=== PATIENT | female | born 1990 | race Caucasian/White ===

== ENCOUNTER 2023-08-09 08:07 | Inpatient (IN) ==
--- NOTE | 2023-07-30 13:10 | Anesthesiology Consultation ---
Date of Service July 30, 2023 Assessment & Plan (1) Encounter for pre-operative examination: Plan - check urine test STAT Am DOS. - Case discussed with Dr. Rosario who advised patient is acceptable to proceed at current status from his standpoint, advised nothing additional needed prior to surgery regarding hypothyroidism. - endocrinology office note 07/26/23: "...Acquired autoimmune hypothyroidism: TSH still suboptimal and has increased to 6.8 despite increasing the dose last time. I do not think generic levothyroxine is a being absorbed. I think she will be benefited with a brand preparation and increase the dose. Her weight appropri ate dose is 150 mcg. New prescription for brand titration was sent to the pharmacy. A follow-up TSH is planned in 6 to 8 weeks...Patient on metformin full dose at 1000 twice a day. She was advised to take metformin with meals to improve her dietary cravings. I also think she will be a candidate for GLP-1 agonist. Her C-peptide has improved from 7.2-4.86 but still significantly elevated. Wegovy was initiated at 0.25 mg weekly for 4 weeks and then increase to 0.5 mg. Side effect profile was discussed with the patient at length and she was also referred to the weight management program at [facility]. She was advised to start Wegovy only after she has recovered from hysterectomy..." - Per loan manager on 07/30/23: No known infectious disease contacts, current infectious disease symptoms in past 10 days or COVID positive test result in the past 30 days. Chart Review Chart Review: Acceptable Risk for Surgery and Patient NOT seen in Pre Admission Testing History Surgery Operation Date: 08/09/23 08:20 Proposed Procedures p Total Laparoscopic Hysterectomy, Bilateral Salpingectomy and Cystoscopy, Possible Laparotomy on any Indicated Procedure - Neil Paredes MD Height/Weight Height: 5 ft 7 in Weight: 91.626 kg Allergies Allergy/AdvReac Type Severity Reaction Status Date / Time nickel Allergy Intermediate HIVES Verified 07/30/23 12:30 latex Allergy skin Verified 07/30/23 12:52 irritation, soreness varenicline [From Chantix] AdvReac Severe increased Verified 07/30/23 12:30 symptoms of bipolar Medications Home Medications Medication Instructions Recorded Confirmed Last Taken omeprazole 40 mg capsule,delayed 40 mg PO QDL 06/08/19 07/30/23 07/23/19 06:30 release metformin 500 mg tablet,extended 1,000 mg (2 x 500 mg) PO BID #360 05/09/23 07/30/23 Unknown release 24hr (osmotic) tabs levothyroxine 150 mcg tablet 150 mcg PO QAM 07/30/23 07/30/23 Unknown (Euthyrox) semaglutide (weight loss) 0.25 0.25 mg (0.5 mL) subcut Q7D #2 mL 07/30/23 07/30/23 Unknown mg/0.5 mL subcutaneous pen injector (Wegovy) Past Medical History Medical History (Updated 07/30/23 @ 13:13 by Ericka Haddad PA-C) Gastritis I contacted patient who states that she has chronic gastritis and follows with PCP, denies change or worsening. Thyroid cyst Acquired autoimmune hypothyroidism PCOS (polycystic ovarian syndrome) Obesity Hx of suicide attempt ~. no current problems. denies any thoughts of harming self or others currently. Mitral valve prolapse mild. follows with PCP. did see cardio at [facility] ~ but did not continue follow ups. 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 Past Family History Family History Uncle Colorectal cancer Family/Other Crohn's disease Other Breast cancer No family history of adverse response to anesthesia Denies family history of Ulcerative colitis Past Surgical History Surgical History History of esophagogastroduodenoscopy (EGD) History of colonoscopy S/P tubal ligation H/O tooth extraction all teeth Social History Smoking Status: Current every day smoker tobacco type: cigarettes Smoking cigarettes per day: 20 Do You Dip or Chew Tobacco: No Hx Alcohol Use: Yes alcohol intake frequency: holidays/special occasions only Hx Substance Use: No substance use type: does not use Lab Results Anesthesia Preop Results Results Anesthesia Widget: TSH 6.468 uIu/ml (0.300-4.500) H 07/26/23 Free T4 0.88 ng/dl (0.61-1.60) 07/26/23 Testing Other Testing Pituitary MRI 11/22/22 1. No acute intracranial abnormality. 2. Unchanged appearance of a 15 mm pituitary lesion. This likely represents a complex cystic lesion such as a Rathke's cleft cyst. No enhancing component is identified.
[~2023-08-09 08:07] MED LIST: LACTATED RINGER'S 1,000 ML IV SCH; ceFAZolin 2000MG 2,000 MG/15 ML SYR IV SCH
[2023-08-09 08:41] LABS: Basophils # (auto) 0.05 K/uL (0.00-0.20); Basophils % (auto) 0.5 %; Eosinophils # (auto) 0.27 K/uL (0.00-0.50); Eosinophils % (auto) 2.5 %; Hematocrit (blood only) 33.9 % (37.0-47.0); Hemoglobin 10.2 g/dl (12.0-16.0); Immature Granulocytes # (auto) 0.06 K/uL (0.01-0.20); Immature Granulocytes % (auto) 0.6 %; Lymphocytes # (auto) 2.37 K/uL (1.20-3.40); Lymphocytes % (auto) 22.1 %; Mean Corpuscular Hemoglobin 21.2 pg (25.0-34.0); Mean Corpuscular Hgb Conc 30.1 g/dL (32.0-36.0); Mean Corpuscular Volume 70.5 fL (80.0-100.0); Monocytes # (auto) 0.89 K/uL (0.11-0.59); Monocytes % (auto) 8.3 %; Neutrophils # (auto) 7.08 K/uL (1.40-6.50); Platelet Count 425 K/uL (130-400); RDW Coefficient of Variation 16.7 % (11.5-14.5); RDW Standard Deviation 42.1 fL (36.4-46.3); Red Blood Count 4.81 M/uL (4.20-5.40); White Blood Count 10.72 K/ul (4.8-10.8)
--- OUTSIDE RECORDS SUMMARY | 2023-08-09 08:48 | External Medical Summary ---
Author Name Unknown Address Unknown Organization [id number]:LABORATORY [facility] - [address] [place] [address] Laboratory Report Ordering Provider Test Date Status BRITANY GUTIERREZ 08/06/2023 11:57:54 Final Observation Date Value Abnormality Reference (Units ) Status SYNC LEUKOCYTES IN BLOOD BY AUTOMATED COUNT 08/06/2023 11:57:54 9.97 4.00-10.80 (K/uL) Final Segs 08/06/2023 11:57:54 65.9 40.0-75.0 (%) Final Lymphs % 08/06/2023 11:57:54 24.2 18.0-42.0 (%) Final Monos 08/06/2023 11:57:54 6.7 1.0-11.0 (%) Final Eosinophils 08/06/2023 11:57:54 2.4 0.0-6.0 (%) Final Basos 08/06/2023 11:57:54 0.6 0.0-2.0 (%) Final Immature Granulocyte, Percent 08/06/2023 11:57:54 0.2 0.0-2.0 (%) Final Absolute Segs 08/06/2023 11:57:54 6.57 1.80-7.70 (K/uL) Final Lymphs, absolute 08/06/2023 11:57:54 2.41 1.00-4.80 (K/ul) Final Monos, Abs 08/06/2023 11:57:54 0.67 0.00-1.10 (K/uL) Final Eos, Abs 08/06/2023 11:57:54 0.24 0.00-0.70 (K/uL) Final Basos, Abs 08/06/2023 11:57:54 0.06 0.00-0.20 (K/uL) Final Immature Granulocytes, Number 08/06/2023 11:57:54 0.02 0.00-0.20 (K/uL) Final Performing Location LABORATORY [facility] [place] - [address] [facility] [address]
--- OUTSIDE RECORDS SUMMARY | 2023-08-09 08:48 | External Medical Summary | Summary of Care ---
Author Name Unknown Organization [facility] Address [address] [facility] [place] [address] Phone [phone] Care Team Providers Care Professor Of Forest Planning Name Role Phone Unavailable Primary Care Provider Unavailabl e Reason for Visit * Reason Comments Pre-Op Testing Encounter Details Date Type Department Care Team (Late st Contact Info) Description 08/05/2023 8:30 AM EST Office Visit Gynecology/Obstetric s [facility] [address] [place] [address] Neil Paredes MD [address] [place] [address] Menorrhagia with regular cycle* Allergies Active Allergy Reactions Criticality Noted Date Comments Varenicline Psych complications 02/14/2017 Environmental Hives Medium 08/07/2007 Exposure to the metal Nickel causes hives Nickel 05/13/2017 Hives documented as of this encounter (statuses as of 08/05/2023) Medications Medication Sig Dispensed Refills Start Date End Date Status Omeprazole 40 MG Oral Capsule Delayed Release (PriLOSEC) TAKE 1 CAPSULE BY MOUTH ONCE DAILY BEFORE A MEAL 0 12/09/2022 Active Levothyroxine Sodium 100 MCG Oral Tablet (Levoxyl) Take 1 Tablet by mouth in the morning. 0 11/30/2022 Active metFORMIN HCl 500 MG Oral Tablet (Glucophage) Take 3 Tablets by mouth daily with breakfast. 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 Depression 12/07/2013 documented as of this encounter (statuses as of 08/05/2023) Resolved Problems Problem Noted Date Diagnosed Date Resolved Date Rathke's cleft cyst 02/27/2017 03/29/20 17 History of asthma 02/14/2017 11/06/2017 Bipolar affective disorder, current episode depressed 02/14/2017 03/29/2017 Supervision of other high-risk 12/07/2013 03/04/2014 Overview: ICD-10 update of inactive term Family history of congenital heart defect 12/07/2013 01/03/2017 Tobacco use in 12/07/2013 History of intrauterine feta l , currently 12/07/2013 07/06/2014 Prior with placent a abruption, antepartum 12/07/2013 07/06/2014 High-risk 10/12/2013 06/04/20 14 Overview: Hx baby with congenital heart defect, age 1 month. delivery with loss @ 23 wk (placental abruption) Cystic fibrosis gene carrier 10/12/2013 06/04/2014 Encounter for laboratory test 08/06/2013 10/12/2013 Overview: Last pap Family history of congenital heart disease 07/10/2013 12/07/2013 Bipolar disorder 07/10/2013 01/03/2017 Asthma in remission 07/10/2013 09/08/19 15 UTI - UNCOMPLICATED (G) 08/11/200702/19 Dysthymic disorder 08/07/2007 8 Tobacco use disorder 08/07/2007 014 BEREVEMENT, COMPLICATED 08/07/200708/2013 Personality disorder 08/07/2007 017 Electrolyte and fluid disorder 08/05/2007 08/07/2007 Major depressive disorder 08/05/2007 Overview: Suicide attempt with drug overdose ICD-10 update of inactive term Suicide and self-inflicted p oisoning by drug or medicinal substance 08/05/2007 04/21/2014 Overview: Attempted suicide overdose Supervision of other high-risk 03/19/2007 08/07/2007 Overview: ICD-10 update of inactive term with poor reproductive history 03/19/2007 08/07/2007 Overview: ICD-10 update of inactive term Other known or suspected fet al abnormality, not elsewhere classified, affecting management of mother, antepartum condition or complication 03/19/2007 08/07/2007 documented as of this encounter (statuses as of 08/05/2023) Immunizations Name Administration Dates Next Due HPV Vaccine, 4-Valent 01/04/2015,09/08/2014 HPV Vaccine, 9-Valent 07/06/2015 Hepatitis B, 20+ yrs 06/11/2016,04/10/2016 TDAP (age 10 and older)(Boostrix) 03/24/2014 documented as of this encounter Social History Tobacco Use Types Packs/Day Years Used Date Smoking Tobacco: Every Day Cigarettes 1 17 Smokeless Tobacco: Never Alcohol Use Standard Drinks/Week Comments No 0 (1 standard drink = 0.6 oz pur e alcohol) PHQ-2 Answer Date Recorded PHQ-2 Score 22 06/19/2018 Hunger Vital Sign Answer Date Recorded Within the past 12 months, y ou worried that your food would run out before you got the money to buy more. Never true 04/25/20 23 Within the past 12 months, t he food you bought just didn't last and you didn't have money to get more. Never true 04/25/2023 Sex and Gender Information Value Date Recorded Sex Assigned at Female 04/25/2023 6:48 AM EDT Gender Identity Female 04/25/2023 6:48 AM EDT Sexual Orientation Straight 04/25/2023 6: 48 AM EDT Job Start Date Occupation Industry Not on file Not on file Not on file documented as of this encounter Last Filed Vital Signs Vital Sign Reading Time Taken Comments Blood Pressure 128/84 08/05/2023 8:15 AM EST Pulse - - Temperature - - Respiratory Rate - - Oxygen Saturation - - Inhaled Oxygen Concentration - - Weight - - Height 167.6 cm (5' 5.98") 08/05/2023 8:15 AM ES T Body Mass Index - - documented in this encounter Functional Status Functional Status Response Date of Assess ment Are you deaf or do you have serious difficulty h earing? No 02/06/2017 Are you blind or do you have serious difficulty seeing, even when wearing glasses? No 02/06/2017 Do you have serious difficul ty walking or climbing stairs? (5 years old or older) No 02/06/2017 Do you have difficulty dress ing or bathing? (5 years old or older) No 02/06/2017 Because of a physical, menta l, or emotional condition, do you have difficulty doing errands alone such as visiting a doctor s office or shopping? (15 years old or older) No 02/07/20 17 Cognitive Status Response Date of Assessm ent Because of a physical, menta l, or emotional condition, do you have serious difficulty concentrating, remembering, or making decisions? (5 years old or older) No 02/06/2017 documented as of this encounter Progress Notes * Neil Paredes MD - 08/05/2023 8:55 AM EST Preop EMBX A ''time out'' was initiated by me prior to procedure.The patient was identified by name and date of . The correct procedure, and correct site identified. Correct positioning (as applicable). There is availability of necessary equipment. Patient states she not allergic to latex. A ''time out'' was initiated by me prior to procedure.The patient was identified by name and date of . The correct procedure, and correct site identified. Correct positioning (as applicable). There is availability of necessary equipment. Patient states she not allergic to latex. Cervix visualized and prepped with Betadine. Anterior lip of the cervix grasped with single tooth tenaculum. Cervix dilated with os finder. Pipelle easily introduced into cervical canal and minimal amounts of tissue obtained and sent to pathology. Patient tolerated procedure well. Minimal bleeding noted at end of procedure. documented in this encounter Nursing Notes * Myrtle Jimenez LPN - 08/05/2023 8:16 AM EST Pre-op EMB. documented in this encounter Plan of Treatment Upcoming Encounters Date Type Department Care Team (Late st Contact Info) Description 08/26/2023 8:30 AM EST Office Visit Gynecology/Obstetrics [facility] [address] [facility] [place] [address] Neil Paredes MD [address] [facility] [place] [address] 02/06/2024 1:00 PM EDT Office Visit Ophthalmology, [facility] [address] [facility] [place] [address] Bridger Erazo DO [address] [facility] [place] [phone] Pending Results Name Type Priority Associated Diagnoses Date /Time SURGICAL PATHOLOGY Pathology Routine Menorrhagia with regular cycle 08/05/2023 9:29 AM EST Health Maintenance Due Date Last Done Comments DISCUSS TOBACCO CESSATION (REFER TO SMARTSET #9191) 1988 COVID-19 Vaccine (#1) 04/17/1989 Pneumococcal Vaccine: Pediatrics (0 to 5 Years) and At-Risk Patients (6 to 64 Years) (1 - PCV) 1994 Depression, Most Recent Score >= 10 (will fire each visit until score < 10) 06/20/2018 06/19/2018 TSH 12/20/2018 12/20/2017, 03/22, 02/06/2017, Additional history exists Influenza Vaccine (FLU shot) (#1) 2023 DTaP,Tdap,and Td Vaccines (2 - Td or Tdap) 03/24/2024 03/24/2014 Pap Smear 04/11/2026 04/11/2023, 04/22, 09/07/2013 Cervical Cancer Screening 04/11/2028 HPV/Co-Test 04/11/2028 04/11/2023 GARDASIL-HPV IMMUNIZATION SERIES Completed 07/06/2015, 01/04/2015, 09/08/2014 Hepatitis B Completed 06/11/2016, 03/23, 12/04/1993, Additional history exists MENINGOCOCCAL (MENACTRA/MENVEO) Aged Out No longer eligible based on patient's age to complete this topic documented as of this encounter Medical Devices Not on filedocumented as of this encounter Procedures Procedure Name Priority Date/Time Associated Diagnosis Comments URINE SCREEN, POINT OF CARE (ENTER/EDIT) Routine 08/05/2023 Menorrhagia with regular cycle documented in this encounter Results * URINE SCREEN, POINT OF CARE (ENTER/EDIT) (08/05/2023) hCG Beta, Urine Negative Negative Procedural Control Valid? Yes Lot Number [id number] Expiration Date Urine 08/05/2023 Neil Paredes MD LAB POINT OF CARE TE ST ENTER/EDIT ORDERABLES documented in this encounter Visit Diagnoses Diagnosis Menorrhagia with regular cycle- Primary Excessive or frequent menstruation documented in this encounter Advance Directives Latest Code Status on File Code Status Date Activated Date Inactivated Comments Full Code 08/07/2007 11:05 AM 08/11/2007 7:07 PM Code Status History Code Status Date Activated Date Inactivated Comments Full Code 08/05/2007 4:35 PM 08/07/2007 11:01 AM
--- OUTSIDE RECORDS SUMMARY | 2023-08-09 08:48 | External Medical Summary | Summary of Care ---
Author Name Unknown Organization [facility] Address [address] [place] [address] Phone [phone] Care Team Providers Care Band Instrument Repairer Name Role Phone Unavailable Primary Care Provider Unavailabl e Reason for Visit * Reason Comments Outpatient Testing Encounter Details Date Type Department Care Team ([facility] st Contact Info) Description 08/06/2023 12:00 PM [facility] Laboratory Laboratory Patient Service [address] [phone] [facility] [address] [place] [id number] Preop testing Allergies Active Allergy Reactions Criticality Noted Date Comments Varenicline Psych complications 02/14/2017 Environmental Hives Medium 08/07/2007 Exposure to the metal Nickel causes hives Nickel 05/13/2017 Hives documented as of this encounter (statuses as of 08/06/2023) Medications Medication Sig Dispensed Refills Start Date [...] as of this encounter (statuses as of 08/06/2023) Active Problems Problem Noted Date Diagnosed Date [...] as of this encounter (statuses as of 08/06/2023) Resolved Problems Problem Noted Date Diagnosed Date [...] as of this encounter (statuses as of 08/06/2023) Immunizations Name Administration Dates Next Due HPV [...] on file documented as of this encounter Functional Status Functional Status Response [...] No 02/06/2017 documented as of this encounter Plan of Treatment Upcoming Encounters Date Type Department Care Team (Late st Contact Info) Description 08/26/2023 8:30 AM EST Office Visit Gynecology/Obstetrics [facility] [address] [place] [address] Neil Paredes MD [address] [place] [address] 02/06/2024 1:00 PM EDT Office Visit Ophthalmology, [facility] [address] [place] [address] Bridger Erazo, DO [address] [place] [phone] Pending Results Name Type Priority Associated Diagnoses Date /Time CBC WITH WBC DIFFERENTIAL Lab Routine Preop testing 08/06/2023 11:57 AM EST CBC Lab Routine Preop testing 08/06/2023 11:57 AM EST DIFFERENTIAL, AUTOMATED Lab Routine Preop testing 08/06/2023 11:57 AM EST Health Maintenance Due Date Last Done Comments DISCUSS TOBACCO CESSATION (REFER TO SMARTSET #8955) 1988 COVID-19 Vaccine (#1) 04/17/1989 Pneumococcal Vaccine: [...] Not on filedocumented as of this encounter Visit Diagnoses Diagnosis Preop testing Preoperative examination, unspecified documented in this encounter Advance Directives Latest Code Status on File Code Status Date Activated Date Inactivated Comments Full Code 08/07/2007 11:05 AM 08/11/2007 7:07 PM Code Status History Code Status Date Activated Date Inactivated Comments Full Code 08/05/2007 4:35 PM 08/07/2007 11:01 AM
--- OUTSIDE RECORDS SUMMARY | 2023-08-09 08:48 | External Medical Summary ---
Author Name Unknown Address Unknown Organization [id number]:LABORATORY [facility] [place] - [address] [facility] [address] [facility] [address] Laboratory Report Ordering Provider Test Date Status BRITANY GUTIERREZ 08/06/2023 11:57:54 Final Observation Date Value Abnormality Reference (Units ) Status WBC, Total 08/06/2023 11:57:54 9.97 4.00-10.80 (K/uL) Final RBC 08/06/2023 11:57:54 4.81 3.85-5.15 (M/uL) Final Hemoglobin 08/06/2023 11:57:54 10.3 Below low normal 12.0-15.3 (g/dL) Final HCT 08/06/2023 11:57:54 36.9 36.0-45.2 (%) Final MCV 08/06/2023 11:57:54 76.7 81.5-97.5 (fL) Final MCH 08/06/2023 11:57:54 21.4 27.0-34.0 (pg) Final MCHC 08/06/2023 11:57:54 27.9 32.0-36.0 (g/dL) Final RDW 08/06/2023 11:57:54 16.8 11.5-15.5 (%) Final Platelets 08/06/2023 11:57:54 442 Above high normal 140-400 (K/uL) Final MPV 08/06/2023 11:57:54 10.7 6.6-11.1 (fL) Final Nucleated erythrocytes/100 leukocytes [Ratio] in Blood by Automated count 08/06/2023 11:57:54 0 <=0 (/100 WBCs) Final Performing Location LABORATORY [facility] - [address] [place] [id number]
[2023-08-09] MEDS ORDERED: PROMETHAZINE HCL 6.25 MG in SODIUM CHLORIDE 0.9% 50 ML IV PRN (08:56)
[2023-08-09] MEDS ORDERED: ONDANSETRON INJ 2 MG/ML 2 ML VIAL IV PRN ×2 (08:56→13:00)
[2023-08-09] MEDS ORDERED: ATROPINE SULFATE 0.1 MG/ML 10ML SYR IV PRN (08:56)
[2023-08-09] MEDS ORDERED: ePHEDrine sulfate 50 MG/ML AMP IV PRN (08:56)
[2023-08-09] MEDS ORDERED: fentaNYL citrate PF 100 MCG/2 ML VIAL IV PRN (08:56)
[2023-08-09] MEDS ORDERED: HYDROmorphone INJ 1 MG/ML SYRINGE IV PRN (08:56)
[2023-08-09] MEDS ORDERED: fentaNYL citrate PF 100 MCG/2 ML VIAL ONE (09:22)
[2023-08-09] MEDS ORDERED: DEXAMETHASONE SOD INJ 4 MG/ML VIAL ONE (09:22)
[2023-08-09] MEDS ORDERED: ONDANSETRON INJ 2 MG/ML 2 ML VIAL ONE (09:22)
[2023-08-09] MEDS ORDERED: MIDAZOLAM HCL 1 MG/ML 2ML VIAL ONE (09:22)
[2023-08-09] MEDS ORDERED: PROPOFOL IV EMULSION 10 MG/ML 20 ML VIAL IV ONE (09:22)
[2023-08-09] MEDS ORDERED: LIDOCAINE 2% 2 ML VIAL/AMP(20MG/ML) INFIL ONE (09:22)
--- NOTE | 2023-08-09 09:57 | History & Physical Bridge Note ---
Date of Service August 09, 2023 History & Physical Bridge Note I have examined the patient, reviewed the History & Physical and in the interval since the performance of the History & Physical I have noted the following changes of clinical significance: Pt is not
[2023-08-09] MEDS ORDERED: ROCURONIUM BROMIDE 10 MG/ML 5 ML VIAL IV ONE (10:02)
[2023-08-09] MEDS ORDERED: ACETAMINOPHEN 1000 MG/100 ML IV IV ONE (10:04)
[2023-08-09] MEDS ORDERED: METHYLENE BLUE 0.5% 10 ML VIAL ONE (10:08)
[2023-08-09] MEDS ORDERED: BUPIVACAINE/EPINEPHRINE 0.5% MPF 1:200,000 30 ML VIAL ONE (10:08)
--- NOTE | 2023-08-09 10:29 | History & Physical Bridge Note ---
Date of Service August 09, 2023 History & Physical Bridge Note I have examined the patient, reviewed the History & Physical and in the interval since the performance of the History & Physical I have noted the following changes of clinical significance: Pt is not and wishes to keep her ovaries, unless at time of surgery, it is deemed pathologic
[2023-08-09] MEDS ORDERED: SUGAMMADEX SODIUM 200 MG/2 ML VIAL IV ONE (12:12)
[2023-08-09] MEDS ORDERED: FLOSEAL HEMOSTATIC MATRIX 10ML TOP ONE (12:14)
[2023-08-09] MEDS ORDERED: KETOROLAC 30 MG/ML VIAL ONE (12:18)
[2023-08-09] MEDS ORDERED: SIMETHICONE 80 MG CHEW PO PRN (13:00)
[2023-08-09] MEDS ORDERED: IBUPROFEN 600 MG TAB PO PRN (13:00)
[2023-08-09] MEDS ORDERED: oxyCODONE/ACETAMINOPHEN 5mg/325mg TAB PO PRN ×2 (13:00)
[2023-08-09] MEDS ORDERED: MAGNESIUM HYDROXIDE SUSP 30 ML UDC PO PRN (13:00)
--- NOTE | 2023-08-09 13:39 | Anesthesiology Progress Note ---
Date of Service August 09, 2023 Anesthesia Post Procedure Vital Signs Vital Signs: Temp Pulse Resp BP Pulse Ox O2 Del Method O2 Flow Rate 08/09/23 13:25 80 16 138/84 99 Room Air 0 08/09/23 13:15 80 17 112/70 95 Oxymask 3 08/09/23 13:05 80 15 107/62 92 Oxymask 4 08/09/23 12:55 88 15 116/63 89 L Oxymask 6 08/09/23 12:47 36.8 C 88 18 92 Oxymask 8 08/09/23 08:31 36.9 C 85 18 131/80 98 Room Air Transfer of Care Handoff Completed per policy Notes Mental Status: alert / awake / arousable Patient Amnestic to Procedure: Yes Nausea / Vomiting: adequately controlled Pain: adequately controlled Airway Patency, RR, SpO2: stable & adequate BP & HR: stable & adequate Hydration State: stable & adequate Anesthetic Complications: no major complications apparent and Pt Satisfied with anesthetic care
--- NOTE | 2023-08-09 13:47 | Operative Report ---
Post Operative Report Pre & Post Diagnosis Operation Date: 08/09/23 09:30 Pre-Op Diagnosis: Adenomyosis Post-Op Diagnosis: Adenomyosis I identified the patient and participated in the time-out.: Yes Procedure Operation Date: 08/09/23 09:30 Actual Procedures p Total Laparoscopic Hysterectomy, Left oophorectomy and Cystoscopy - Neil Paredes MD Surgeon Neil Paredes MD Utilities Manager Arturo Solomon Estimated Blood Loss 10 Findings Consistent with Post-Op Diagnosis Normal female escutcheon. Vagina and vulva appear grossly normal. Cervix appears bowels. Laparoscopic findings showed the following; Uterus is about 12 to 14 weeks size. There is no left infundibulo pelvic The left ovary is directly attached to the left side of the uterus . The right adnexa appears normal except for the absence of the right fallopian tube. Appendix appears grossly normal ureters identified prior to surgery. Cystoscopy done is unremarkable both ureteral orifices are seen and urine is seen effluxingfrom both . Fluids IVF; 1000 urine : 400 EBL; 10cc Specimens uterus with cervix and left ovary Drains none Anesthesia Type General Complications none Indications Adenomyosis patient has declined medical treatment. Description of Procedure FINDINGS: DESCRIPTION OF PROCEDURE: The patient was prepped and draped in normal sterile fashion in the dorsal lithotomy position. Milton catheter was placed without difficulty. An Advincula uterine manipulator was placed in the uterus to help with colpotomy. Attention was paid to the abdominal part of the procedure where a supraumbilical incision was made and carried down to the fascia. Rebecca was used to grab the fascia. Veress needle was introduced into the abdomen at a 45-degree angle while tenting up the abdomen. Intra-abdominal placement was confirmed with a water-filled syringe. A water drop and suction test was performed. The abdomen was insufflated with CO2 gas. The Veress needle was removed and a 5 mm non bladed trocar was attached to a laparoscope was introduced into the abdomen under direct visualization. This was a non bladed trocar. Once inside the abdomen, laparoscope was repositioned. Inspection of the abdomen shows the findings as dictated above. Three more accessory ports were placed, two 5 mm accessory ports were placed in the lower abdomen on the contralateral side, in addition, an 11 mm trocar was placed on the left upper quadrant. General inspection of the abdomen and pelvis was performed as dictated above findings of the abdomen is as dictated above.. LigaSure was passed through the left accessory port. As stated stated in the findings, there is no infundibulopelvic and left fallopian tube,so the round ligament is transected. This allowed for fenestration of the posterior left broad ligament. On the right, the round ligament and infundibulopelvic is transected with the LigaSure. the right broad ligament is connected anteriorly and posteriorly to the left. . The anterior broad ligament dissection was carried to the mid-section of the vesicouterine peritoneum over the bladder u sing the Harmonic scalpel. Same procedure was carried out on the contralateral side. The posterior broad ligament peritoneum was carefully dissected also from both sides over the uterosacral arch in order to displace the ureters laterally. Using traction and countertraction, the Maryland retractor and irrigation probe was used to further dissect the bladder off the lower segment of the uterus. Bladder pillars and pubovesical fascia was dissected as well. Harmonic scalpel was used to obtain hemostasis where needed. Uterine manipulator was now palpable over the vaginal tissue. The right uterine pedicles were skeletonized and coagulated with the LigaSure. Good hemostasis was obtained. Same procedure was performed on the contralateral side. Cardinal ligaments were transected on both sides. Once good hemostasis was obtained, colpotomy was performed using the LigaSure hook from both sides. Uterus was removed through the vagina while still attached to the uterine manipulator. The bulb was attached to the uterine manipulator was reinserted into the vagina to establish pneumoperitoneum. Uterus is removed with the left ovary attached to it. This is sent to pathology for logical analysis. EndoStitch closure device was passed through the 11 mm port on the left. Using the Maryland grasper for traction, colpotomy closure was performed. The uterosacral ligaments incorporated into the closure in order to decrease the risk of prolapse. Lapro ties were used with the EndoStitch. The 11-mm trocar site was closed with a Uri-Azar under direct visualization. Attention was paid to the cystoscopy part of the procedure where a cystoscope was introduced into the bladder. There are no sutures seen in the bladder. There were no gross blood seen in the bladder as well. The bubble sign is noted showing the bladder was a close cavity. Both ureters were seen and there was efflux from both uterus. The skin incisions are closed with Dermabond, except for the 11-mm trocar site, which was closed with 4-0 Monocryl. The patient was returned to recovery in stable condition. Inspection of the vagina shows the vaginal cuff was intact. All instruments were removed from the vagina and the bladder and accounted for x2. I attest to the content of the Intraoperative Record and any orders documented therein. Any exceptions are noted below. Utilities Manager was necessary for retraction and manipulation of instruments in order to provide for a safe operation
[2023-08-09] MEDS: LACTATED RINGER'S 1,000 ML IV SCH ×2 (13:55→21:35)
[2023-08-09] MEDS: IBUPROFEN 600 MG TAB PO SCH ×2 (16:29→20:16)
--- OUTSIDE RECORDS SUMMARY | 2023-08-09 16:38 | External Medical Summary | Summary of Care ---
Author Name Unknown Organization [facility] Address [address] [place] [address] Phone [phone] Care Team Providers Care Payroll Consultant Name Role Phone Unavailable Primary Care Provider Unavailabl e Encounter Details Date Type Department Care Team (Late st Contact Info) Description 08/09/2023 Orders Only Gynecology/Obstetrics [facility] [address] [place] [id number] Neil Paredes MD [address] [place] [id number] Allergies Active Allergy Reactions Criticality Noted Date Comments Varenicline Psych complications 02/14/2017 Environmental Hives Medium 08/07/2007 Exposure to the metal Nickel causes hives Nickel 05/13/2017 Hives documented as of this encounter (statuses as of 08/09/2023) Medications Medication Sig Dispensed Refills Start Date [...] as of this encounter (statuses as of 08/09/2023) Active Problems Problem Noted Date Diagnosed Date [...] as of this encounter (statuses as of 08/09/2023) Resolved Problems Problem Noted Date Diagnosed Date [...] 07/10/2013 09/08/19 15 UTI - UNCOMPLICATED (G) 08/11/2007 08/10/2013 Dysthymic disorder 08/07/2007 8 Tobacco use disorder 08/07/200703/04/ 014 BEREVEMENT, COMPLICATED 08/07/200708/2013 Personality disorder 08/07/2007 [...] as of this encounter (statuses as of 08/09/2023) Immunizations Name Administration Dates Next Due HPV [...] 08/26/2023 8:30 AM EST Office Visit Gynecology/Obstetrics [facility] [address] [place] [id number] Neil Paredes MD [address] [place] [address] 02/06/2024 1:00 PM EDT Office Visit Ophthalmology, [facility] [address] [place] [address] Bridger Erazo, DO [address] [place] [address] Health Maintenance Due Date Last Done Comments DISCUSS TOBACCO CESSATION (REFER TO SMARTSET #[id number]) 1988 COVID-19 Vaccine (#1) 04/17/1989 Pneumococcal Vaccine: [...] Procedure Name Priority Date/Time Associated Diagnosis Comments CBC Routine 08/09/2023 documented in this encounter Results * (ABNORMAL) CBC WITH WBC DIFFERENTIAL (08/09/2023) HEMOGLOBIN-OUT SIDE LAB 10.2(A) 12 - 16 G/DL OUTSIDE LAB (SEE SCANNED REPORT) Blood Venous blood specimen / Unknown 08/09/2023 Neil Paredes MD LAB BLOOD ORDERABLES OUTSIDE LAB (SEE SCANNED REPORT) documented in this encounter Advance Directives Latest Code Status on File Code Status Date Activated Date Inactivated Comments Full Code 08/07/2007 11:05 AM 08/11/2007 7:07 PM Code Status History Code Status Date Activated Date Inactivated Comments Full Code 08/05/2007 4:35 PM 08/07/2007 11:01 AM
[2023-08-09] MEDS: DOCUSATE SODIUM 100 MG CAP PO SCH (20:16)
[2023-08-09] MEDS: metFORMIN HCL ER 500 MG TABCR PO SCH (20:59)
[2023-08-10] MEDS: IBUPROFEN 600 MG TAB PO SCH ×2 (00:13→04:43)
--- NOTE | 2023-08-10 00:19 | Gynecologic Progress Note ---
Date of Service August 10, 2023 Assessment & Plan Admission and Anticipated Discharge Date Admission Date: August 09, 2023 Subjective Postop day # 1 Patient is seen and examined I was called earlier that she wanted to be discharged. She wanted to smoke and declined Nicotine patch. Now she wants to sta and go after breakfast. Feels well, no complaints Pain is under control with oral meds No CP/ SOB/ Dizziness/ N&V/ VB/ Leg pain OOB to BR and hallway many times Tolerating diet, jello and clears Flatus neg Vital Signs Temp Pulse Resp BP Pulse Ox O2 Del Method O2 Flow Rate 08/09/23 16:55 129/76 98 Room Air 08/09/23 15:55 14 132/78 98 Room Air 08/09/23 14:55 36.6 C 86 16 133/81 98 Room Air 08/09/23 14:25 36.6 C 81 16 121/76 97 Room Air 08/09/23 13:55 36.2 C L 74 16 122/80 98 Room Air 08/09/23 13:25 80 16 138/84 99 Room Air 0 08/09/23 13:15 80 17 112/70 95 Oxymask 3 08/09/23 13:05 80 15 107/62 92 Oxymask 4 08/09/23 12:55 88 15 116/63 89 L Oxymask 6 08/09/23 12:47 36.8 C 88 18 92 Oxymask 8 PE: General: Alert, orientedx3, NAD CVS: S1S2 RRR Lungs: CTAB Abd: soft, NT, ND, BS+, Incisions C/D/I No VB Ext: NT, no edema/ erythema AP: 32 yo female s/p TLH , pod#1 VSS Afebrile doing well Continue to routine postop care Encourage PO intake, may ambulate Anticipate DC after breakfast Results & Data Vital Signs (Past 12 Hours) Vital Signs Temp Pulse Resp BP Pulse Ox O2 Del Method O2 Flow Rate 08/09/23 16:55 129/76 98 Room Air 08/09/23 15:55 14 132/78 98 Room Air 08/09/23 14:55 36.6 C 86 16 133/81 98 Room Air 08/09/23 14:25 36.6 C 81 16 121/76 97 Room Air 08/09/23 13:55 36.2 C L 74 16 122/80 98 Room Air 08/09/23 13:25 80 16 138/84 99 Room Air 0 08/09/23 13:15 80 17 112/70 95 Oxymask 3 08/09/23 13:05 80 15 107/62 92 Oxymask 4 08/09/23 12:55 88 15 116/63 89 L Oxymask 6 08/09/23 12:47 36.8 C 88 18 92 Oxymask 8
[2023-08-10] MEDS: LACTATED RINGER'S 1,000 ML IV SCH (04:49)
[2023-08-10] MEDS: DOCUSATE SODIUM 100 MG CAP PO SCH (08:20)
[2023-08-10] MEDS: metFORMIN HCL ER 500 MG TABCR PO SCH (08:38)
[2023-08-10 08:59] LABS: BUN Creatinine Ratio 8.7 (10-20); Calcium 9.3 mg/dl (8.6-10.3); Creatinine Clr Calc Pharmacy 130.5 ml/min; Est GFR (African American) 131.6 ml/min; Est GFR (Non-African American) 113.6 ml/min
[2023-08-10 09:47] LABS: Basophils # (auto) 0.02 K/uL (0.00-0.20); Basophils % (auto) 0.1 %; Hematocrit (blood only) 31.6 % (37.0-47.0); Hemoglobin 9.4 g/dl (12.0-16.0); Immature Granulocytes # (auto) 0.16 K/uL (0.01-0.20); Immature Granulocytes % (auto) 0.8 %; Lymphocytes # (auto) 2.48 K/uL (1.20-3.40); Lymphocytes % (auto) 11.9 %; Mean Corpuscular Hemoglobin 21.3 pg (25.0-34.0); Mean Corpuscular Hgb Conc 29.7 g/dL (32.0-36.0); Mean Corpuscular Volume 71.5 fL (80.0-100.0); Mean Platelet Volume 10.5 fL (9.4-12.4); Monocytes % (auto) 6.7 %; Neutrophils # (auto) 16.84 K/uL (1.40-6.50); Neutrophils % (auto) 80.5 %; Platelet Count 438 K/uL (130-400); RDW Coefficient of Variation 16.9 % (11.5-14.5); RDW Standard Deviation 42.6 fL (36.4-46.3); Red Blood Count 4.42 M/uL (4.20-5.40)
--- NOTE | 2023-08-10 17:51 | Discharge Summary ---
Date of Service August 10, 2023 Admission HPI Per Admitting Provider Patient was admitted on August 09, 2023 and underwent total laparoscopic hysterectomy with left oophorectomy and cystoscopy details of surgery see the procedure note. Postop course was unremarkable and patient is discharged home today with instructions. Discharge Data Procedures Performed Operation Date: 08/09/23 09:30 Actual Procedures p Total Laparoscopic Hysterectomy, Left oophorectomy - Neil Paredes MD s Cystoscopy(Not Applicable) - Neil Paredes MD Hospital Course (1) Adenomyosis of uterus: Discharge Instructions Post op course was unremarkable and pt is discharges home in stable condition. Discharge instructions including medications,diet, activity and follow up appointments are reviewed with pt.
== END 2023-08-10 09:00 | disposition home or self-care (01) | DRG 743 ==
LOC: ASU 08:07 → 4E2 13:16